=== PATIENT | male | born 1950 | race Caucasian/White ===

== ENCOUNTER 2022-04-21 05:53 | Observation (INO) ==
[~2022-04-21 05:53] MED LIST: Naloxone 0.4 mg VIAL 0.4 mg/ml 1 ml VIAL IV PRN; Ondansetron 4 mg VIAL 2 MG/ML 2 ml VIAL IV PRN; fentaNYL 100 mcg/2 ml 50 MCG/ML VIAL IV PRN; oxyCODONE/Acetamin 5/325 mg TAB PO PRN
[2022-04-21] MEDS ORDERED: Buffered Lidocaine 1% SYRIN 1 ml INTRADERM ONE (06:00)
[2022-04-21] MEDS ORDERED: Lactated Ringers 1000 ml BAG 1,000 ML IV SCH (06:00)
[2022-04-21] MEDS ORDERED: ceFAZolin 2 GM in NS PREMIX 2 GM/100 ML BAG IVPB ONE (06:13)
[2022-04-21] MEDS ORDERED: Glycopyrrolate IV 0.2 MG/ML 1 ML VIAL ONE ×2 (06:39→10:30)
[2022-04-21] MEDS ORDERED: Dexamethasone IV 4 MG/ML VIAL 1 ml VIAL ONE (06:39)
[2022-04-21] MEDS ORDERED: Ondansetron 4 mg VIAL 2 MG/ML 2 ml VIAL ONE (06:39)
[2022-04-21] MEDS ORDERED: Phenylephrine 40 mcg/mL 10mL (400mcg) SYRINGE ONE (06:39)
[2022-04-21] MEDS ORDERED: Propofol 10 MG/ML 20 ML BTL ONE (06:39)
[2022-04-21] MEDS ORDERED: Lidocaine 2% PF 5 ML VIAL ONE (06:39)
[2022-04-21] MEDS ORDERED: Phenylephrine IV 10 MG/ML 1 ml VIAL ONE (06:39)
[2022-04-21] MEDS ORDERED: fentaNYL 100 mcg/2 ml 50 MCG/ML VIAL ONE ×2 (06:46→08:16)
[2022-04-21] MEDS ORDERED: Midazolam 2 mg/2 ml VIAL 1 mg/ml 2 ml VIAL (2 mg) ONE ×2 (06:46→08:16)
[2022-04-21] MEDS ORDERED: ROPIVACAINE 5 MG/ML 30 ML BTL (0.5%) ONE ×2 (08:16→10:06)
[2022-04-21] MEDS ORDERED: Dexmedetomidine 200 mcg/2 ml 2 ml VIAL (200 mcg) ONE (08:17)
[2022-04-21] MEDS ORDERED: Ondansetron ODT 4 mg TAB 4 MG TAB PO PRN (09:12)
[2022-04-21] MEDS ORDERED: Lactulose 30 ml UDC PO PRN (09:12)
[2022-04-21] MEDS ORDERED: Ondansetron 4 mg VIAL 2 MG/ML 2 ml VIAL IV PRN (09:12)
[2022-04-21] MEDS ORDERED: Morphine 2 MG/ML SYRINGE IV PRN (09:12)
[2022-04-21] MEDS ORDERED: Magnesium Hydroxide LIQ 30 ML UDC PO PRN (09:12)
[2022-04-21] MEDS ORDERED: Ropivacaine 5 MG/ML 20 ML VIAL 0.5% (100 MG) ONE (09:33)
[2022-04-21] MEDS ORDERED: ceFAZolin 1 GM ADVAN 1 GM in NS 0.9% 50 ML 50 ML IVPB SCH (10:00)
[2022-04-21] MEDS ORDERED: Acetaminophen IV 1 GM/100ML 1,000 MG/100 ML BAG IV ONE (10:41)
[2022-04-21] MEDS: Lactated Ringers 1000 ml BAG 1,000 ML IV SCH (13:48)
[2022-04-21] MEDS: ceFAZolin 1 GM ADVAN 1 GM in NS 0.9% 50 ML 50 ML IVPB SCH (17:56)
[2022-04-21] MEDS: Magnesium Hydroxide LIQ 30 ML UDC PO SCH (20:57)
[2022-04-22] MEDS: Lactated Ringers 1000 ml BAG 1,000 ML IV SCH (00:11)
[2022-04-22] MEDS: ceFAZolin 1 GM ADVAN 1 GM in NS 0.9% 50 ML 50 ML IVPB SCH ×2 (01:42→09:42)
[2022-04-22 05:56] LABS: Hematocrit 42 % (42-52); Mean Platelet Volume 7.4 fL (7.4-10.4); Platelet Count 134 10^3/uL (150-450)
[2022-04-22 06:35] LABS: Calcium 8.5 mg/dL (8.6-10.3); Creatinine, Serum 0.84 mg/dL (0.67-1.17); Potassium 4.3 mmol/L (3.5-5.0); eGFR CKD-EPI 93.8 (>60)
[2022-04-22] MEDS: Magnesium Hydroxide LIQ 30 ML UDC PO SCH (07:44)
[2022-04-22 08:59] VITALS: BP 132/080
[2022-04-22] MEDS ORDERED: Cholecalciferol (VIT D3) 1,000 unit TAB PO SCH (09:00)
[2022-04-22] MEDS ORDERED: Vitamin THERAPEUTIC TAB PO SCH (09:00)
== END 2022-04-22 10:36 | disposition home or self-care (01) ==
LOC: SSU 05:53 → OR 05:53
PROVIDERS: ADMIT Orthopaedic Surgery Adult Reconstructive Orthopaedic Surgery; ATTEND Orthopaedic Surgery Adult Reconstructive Orthopaedic Surgery